=== PATIENT | male | born 1985 | race Caucasian/White ===

== ENCOUNTER 2017-04-25 23:56 | Emergency (ER) | payer OTHER ==
[2017-04-26] VITALS: BP 126/80; PULSE 83; RESP 18; TEMP 98.4; O2SAT 97
--- NOTE | 2017-04-26 00:38 | EDPHY ---
H & P Stated Complaint: SLIPPED AT WORK RIGHT ANKLE PAIN Time Seen by Provider: 04/26/17 00:34 HPI/ROS: Chief Complaint: Right ankle injury HPI: A 32-year-old male was at work walking down stairs when he missed the last step, inverting his right ankle. He has pain over his lateral right ankle since then. It hurts to bear weight. He has had some swelling. No prior injuries. No falls. No other complaints at this time. ROS: 10 point Review of Systems is negative except as noted in the HPI. PMH: None Medications: None Allergies: No known drug allergies Social History: [No] smoking, [no] alcohol, [ no recreational drug use] Family History: [non-contributory] Physical Exam: General: Awake, alert, no acute distress Right lower extremity: Hip is nontender, full range of motion without pain, knee is nontender, full range of motion of pain, right ankle: He has tenderness over the distal lateral malleolus with tenderness along the anterior talofibular ligament. He has mild decreased range of motion secondary to pain. No medial tenderness. No foot tenderness. No erythema. Sensations intact in all dermatomes. Capillary refills less than 2 seconds. He has 2+ DP and PT pulses. Skin: No rash - Personal History Current Tetanus/Diphtheria Vaccine: Yes Current Tetanus Diphtheria and Acellular Pertussis (TDAP): Yes Tetanus Vaccine Date: 2014 - Medical/Surgical History Hx Asthma: No Hx Chronic Respiratory Disease: No Hx Diabetes: No Hx Cardiac Disease: No Hx Renal Disease: No Hx Cirrhosis: No Hx Alcoholism: No Hx HIV/AIDS: No Hx Splenectomy or Spleen Trauma: No Other PMH: DENIES - Social History Smoking Status: Light smoker Constitutional: Initial Vital Signs Temperature (C) 36.9 C 04/25/17 23:58 Heart Rate 83 04/25/17 23:58 Respiratory Rate 18 04/25/17 23:58 Blood Pressure 126/80 H 04/25/17 23:58 O2 Sat (%) 97 04/25/17 23:58 O2 Delivery Mode Room Air Allergies/Adverse Reactions: No Known Allergies Allergy (Unverified 04/26/17 00:00) Home Medications: Medication Instructions Recorded NK [No Known Home Meds] 04/26/17 Medical Decision Making - Diagnostics Imaging Results: Right ankle x-rays negative for acute bony abnormality per my interpretation. Imaging: I viewed and interpreted images myself ED Course/Re-evaluation: Patient with sprained ankle at work. Has been placed in a Velcro stirrup splint for comfort. Will be discharged with follow up with workman's Comp. Departure - Departure Disposition: Home, Routine, Self-Care Clinical Impression: Ankle sprain Condition: Good Instructions: Ankle Sprain (ED), Ankle Stirrup Splint (ED) Additional Instructions: Follow up with workman's Comp in 2-3 days for further evaluation. You may alternate ibuprofen with acetaminophen as needed for pain. Apply ice for 15 minutes of every hour while awake. Return emergency department for increasing pain, weakness, numbness, tingling, swelling, or other concerns. Referrals: Sandro Cox MD [Primary Care Provider] - As per Instructions
== END 2017-04-26 00:55 | disposition home or self-care (01) ==
DX: S93.401A Sprain of unspecified ligament of right ankle, initial encounter (principal); F17.200 Nicotine dependence, unspecified, uncomplicated; X58.XXXA Exposure to other specified factors, initial encounter; Y92.69 Other specified industrial and construction area as the place of occurrence of the external cause; Y99.0 Civilian activity done for income or pay; Y93.01 Activity, walking, marching and hiking
CPT/HCPCS: L4350